=== PATIENT | male | born 1985 | race African-American/Black ===

== ENCOUNTER 2019-11-29 13:19 | Emergency (ER) | payer MEDICAID, OTHER ==
[~2019-11-29] VITALS: Ht 182.9 cm; Wt 113.4 kg
[2019-11-29] MEDS ORDERED: diphenhdrAMINE HCL 50 MG/1 ML VL ONE (13:27)
[2019-11-29] MEDS ORDERED: HALOPERIDOL LACTATE 5 MG/ML INJ VIAL IM ONE (14:00)
[2019-11-29] MEDS ORDERED: MIDAZOLAM HCL 1MG/1ML-2 ML VIAL IM ONE ×2 (14:00)
[2019-11-29] MEDS ORDERED: LORazepam 2MG/ML-1ML VIAL IM ONE (14:00)
[2019-11-29 14:32] LABS: Basophils # (auto) 0 10 ^3/uL (0-0.2); Basophils % (auto) 0.4 % (0.0-2.0); Eosinophils # (auto) 0 10 ^3/uL (0-0.8); Eosinophils % (auto) 0.1 % (0.0-7.0); Hematocrit 44.6 % (41.0-53.0); Hemoglobin 15.5 g/dL (13.5-17.5); Lymphocytes # (auto) 0.9 10 ^3/uL (0.4-5.4); Lymphocytes % (auto) 8.3 % (10.0-50.0); Mean Corpuscular Hemoglobin 31.2 pg (28.0-32.0); Mean Corpuscular Hgb Conc. 34.7 g/dL (32.0-36.0); Mean Corpuscular Volume 89.9 fL (80.0-100.0); Monocytes # (auto) 0.8 10 ^3/uL (0-1.3); Monocytes % (auto) 7.4 % (0.0-12.0); Neutrophils # (auto) 9.5 10 ^3/uL (1.6-8.6); Neutrophils % (auto) 83.8 % (37.0-80.0); Nucleated Red Blood Cells % 0.1 %; Platelet Count (auto) 112 10^3/uL (140-450); Red Blood Cells 4.96 10^6/uL (4.5-5.90); Red Cell Distribution Width 15.2 % (11.8-14.3); White Blood Cell 11.3 10^3/uL (4.4-10.8)
[2019-11-29 14:44] LABS: Albumin 4.6 g/dL (3.4-5.0); Calcium 9.6 mg/dL (8.5-10.1); Potassium 3.4 mmol/L (3.5-5.1)
[2019-11-29 14:47] LABS: BUN/Creatinine Ratio 6.4; Total Protein 8.6 g/dL (6.4-8.2)
[2019-11-29 14:49] LABS: Salicylate < 1.7 mg/dL (2.8-20.0)
[2019-11-29 15:03] LABS: Acetaminophen < 2.0 ug/mL (10-30)
[2019-11-29 16:41] LABS: Amphetamine Screen, Urine POSITIVE (NEGATIVE); Barbiturate Scree,Urine NEGATIVE (NEGATIVE); Benzodiazephine Screen, Urine POSITIVE (NEGATIVE); Cannabinoid Screen, Urine NEGATIVE (NEGATIVE); Cocaine Screen, Urine NEGATIVE (NEGATIVE); Opiate Scree,Urine NEGATIVE (NEGATIVE); Phencyclidine Screen, Urine NEGATIVE (NEGATIVE)
[2019-11-29 16:51] LABS: Urine Bacteria FEW /hpf (None Seen); Urine Blood 2+ /uL (Negative); Urine Hyaline Cast MOD /lpf (0 - 2); Urine Mucus FEW (None Seen); Urine Specific Gravity 1.018 (1.001-1.035); Urine WBC 4 /hpf (0 - 3)
[2019-11-29] MEDS ORDERED: SODIUM CHLORIDE 0.9% 1,000 ML IV ONE (17:15)
[2019-11-30 02:03] VITALS: BP 117/76
[2019-11-30] MEDS ORDERED: cefTRIAXone 1GM/50ML D5W 50 ML IV ONE ×2 (03:00→03:15)
== END 2019-11-30 03:40 | disposition home or self-care (01) ==
LOC: EDBD 13:19 → ER 13:19
DX: T50.905A Adverse effect of unspecified drugs, medicaments and biological substances, initial encounter (principal); F29 Unspecified psychosis not due to a substance or known physiological condition; N39.0 Urinary tract infection, site not specified; Y92.89 Other specified places as the place of occurrence of the external cause
CPT/HCPCS: 36415; 80053; 80307; 80320; 80329; 81001; 85025; 96361; 96365; 96372; 99285; J0696; J1200; J2250

== ENCOUNTER 2020-11-01 07:28 | Inpatient (IN) | payer MEDICAID ==
[~2020-11-01] VITALS: Ht 180.3 cm; Wt 86.5 kg
[2020-11-01] MEDS ORDERED: DEXTROSE (50%) 50ML SYRG IV PRN (08:00)
[2020-11-01] MEDS ORDERED: INSULIN LANTUS (GLARGINE) 1 /0.01ml (100units/ml) SC ONE (08:00)
[2020-11-01] MEDS ORDERED: SODIUM BICARBONATE 8.4 % INJ 50ML VIAL IV ONE (08:45)
[2020-11-01] MEDS ORDERED: SODIUM BICARBONATE 8.4% INJ 50ML SYRINGE ONE ×2 (08:58→09:00)
[2020-11-01] MEDS: SODIUM CHLORIDE 0.9% 1,000 ML IV SCH ×4 (09:02→20:53)
[2020-11-01] MEDS: InsuLIN R (HUMAN) 100 UNITS in SODIUM CHL 0.9% 99 ML IV SCH ×2 (09:03→19:55)
[2020-11-01] MEDS: ACCU-CHEK COMFORT CURVE STRIP VI SCH ×10 (09:05→22:43)
[2020-11-01 09:12] LABS: Basophils # (auto) 0 10 ^3/uL (0-0.2); Basophils % (auto) 0.4 % (0.0-2.0); Eosinophils # (auto) 0 10 ^3/uL (0-0.8); Eosinophils % (auto) 0.2 % (0.0-7.0); Hematocrit 50.1 % (41.0-53.0); Hemoglobin 16.8 g/dL (13.5-17.5); Lymphocytes # (auto) 0.6 10 ^3/uL (0.4-5.4); Lymphocytes % (auto) 4.4 % (10.0-50.0); Mean Corpuscular Hemoglobin 31.3 pg (28.0-32.0); Mean Corpuscular Hgb Conc. 33.6 g/dL (32.0-36.0); Mean Corpuscular Volume 93.1 fL (80.0-100.0); Monocytes # (auto) 1.5 10 ^3/uL (0-1.3); Monocytes % (auto) 11.5 % (0.0-12.0); Neutrophils # (auto) 10.9 10 ^3/uL (1.6-8.6); Neutrophils % (auto) 83.5 % (37.0-80.0); Nucleated Red Blood Cells % 0.5 %; Red Blood Cells 5.38 10^6/uL (4.5-5.90); Red Cell Distribution Width 14.1 % (11.8-14.3)
[2020-11-01 09:27] LABS: BUN/Creatinine Ratio 8.8; Calcium 9.5 mg/dL (8.5-10.1); Magnesium 2.8 mg/dL (1.6-2.6); Phosphorus 3.5 mg/dL (2.5-4.90); Potassium 4.9 mmol/L (3.5-5.1)
[2020-11-01] MEDS ORDERED: MORPHINE SULFATE INJECTION 2 MG/ML SYRG IV PRN (10:30)
[2020-11-01] MEDS ORDERED: NITROGLYCERIN 0.4 MG SL TAB SL PRN (10:30)
[2020-11-01] MEDS ORDERED: HYDROcodone-ACET 5/325MG TAB PO PRN (10:30)
[2020-11-01 10:59] LABS: Urine WBC None Seen /hpf (0 - 3)
[2020-11-01 11:10] LABS: Urine Bacteria NONE SEEN /hpf (None Seen); Urine Blood Negative /uL (Negative); Urine Hyaline Cast FEW /lpf (0 - 2); Urine Specific Gravity 1.015 (1.001-1.035)
[2020-11-01 11:19] LABS: Alcohol, Urine < 3.0 mg/dL (0-10); Amphetamine Screen, Urine NEGATIVE (NEGATIVE); Barbiturate Scree,Urine NEGATIVE (NEGATIVE); Benzodiazephine Screen, Urine NEGATIVE (NEGATIVE); Cannabinoid Screen, Urine NEGATIVE (NEGATIVE); Cocaine Screen, Urine NEGATIVE (NEGATIVE); Opiate Scree,Urine NEGATIVE (NEGATIVE); Phencyclidine Screen, Urine NEGATIVE (NEGATIVE)
[2020-11-01] MEDS ORDERED: SODIUM CHLORIDE 0.9% 1,000 ML IV SCH (12:00)
[2020-11-01] MEDS: METOCLOPRAMIDE HCL 5MG/ml INJ 2ml VIAL IV SCH ×2 (12:03→18:56)
[2020-11-01 15:00] LABS: Calcium 8.5 mg/dL (8.5-10.1)
[2020-11-01 20:43] LABS: BUN/Creatinine Ratio 8.3; Calcium 8.6 mg/dL (8.5-10.1); Potassium 4.4 mmol/L (3.5-5.1)
[2020-11-02 01:34] LABS: BUN/Creatinine Ratio 6.2; Calcium 8.6 mg/dL (8.5-10.1); Potassium 4.4 mmol/L (3.5-5.1)
[2020-11-02] MEDS: ACCU-CHEK COMFORT CURVE STRIP VI SCH ×10 (02:02→23:44)
[2020-11-02] MEDS: FAMOTIDINE (10MG/ML) 2ML VL IV SCH ×3 (02:03→21:30)
[2020-11-02] MEDS: SODIUM CHLORIDE 0.9% 1,000 ML IV SCH ×4 (03:33→23:20)
[2020-11-02 04:28] LABS: Basophils # (auto) 0 10 ^3/uL (0-0.2); Basophils % (auto) 0.3 % (0.0-2.0); Eosinophils # (auto) 0 10 ^3/uL (0-0.8); Eosinophils % (auto) 0.5 % (0.0-7.0); Hemoglobin 14.4 g/dL (13.5-17.5); Lymphocytes # (auto) 0.8 10 ^3/uL (0.4-5.4); Lymphocytes % (auto) 12.1 % (10.0-50.0); Mean Corpuscular Hemoglobin 31.5 pg (28.0-32.0); Mean Corpuscular Volume 90.1 fL (80.0-100.0); Monocytes # (auto) 0.9 10 ^3/uL (0-1.3); Monocytes % (auto) 13.8 % (0.0-12.0); Neutrophils # (auto) 4.8 10 ^3/uL (1.6-8.6); Neutrophils % (auto) 73.3 % (37.0-80.0); Nucleated Red Blood Cells % 0.1 %; Red Blood Cells 4.55 10^6/uL (4.5-5.90); White Blood Cell 6.5 10^3/uL (4.4-10.8)
[2020-11-02 04:44] LABS: Calcium 8.9 mg/dL (8.5-10.1); Magnesium 2.6 mg/dL (1.6-2.6); Phosphorus 1.3 mg/dL (2.5-4.90)
[2020-11-02] MEDS: InsuLIN R (HUMAN) 100 UNITS in SODIUM CHL 0.9% 99 ML IV SCH (08:29)
[2020-11-02] MEDS ORDERED: DEXTROSE (50%) 50ML SYRG IV PRN (09:30)
[2020-11-02] MEDS ORDERED: INSULIN LANTUS (GLARGINE) 1 /0.01ml (100units/ml) SC SCH (10:00)
[2020-11-02] MEDS: INSULIN LANTUS (GLARGINE) 1 /0.01ml (100units/ml) SC SCH ×2 (10:00→21:36)
[2020-11-02] MEDS: InsuLIN REG 1unit/0.01ml Soln (100units/ml) SC SCH ×3 (11:52→23:38)
[2020-11-02] MEDS ORDERED: METOCLOPRAMIDE HCL 5MG/ml INJ 2ml VIAL IV PRN (12:00)
[2020-11-02 15:04] VITALS: BP 135/90
[2020-11-02 16:46] VITALS: BP 120/89
[2020-11-02 22:00] VITALS: BP 141/105
[2020-11-03] MEDS: SODIUM CHLORIDE 0.9% 1,000 ML IV SCH ×3 (03:48→19:20)
[2020-11-03 05:00] VITALS: BP 131/77
[2020-11-03] MEDS: ACCU-CHEK COMFORT CURVE STRIP VI SCH ×3 (05:35→18:11)
[2020-11-03] MEDS: InsuLIN REG 1unit/0.01ml Soln (100units/ml) SC SCH ×3 (05:36→18:12)
[2020-11-03 06:08] LABS: BUN/Creatinine Ratio 5.6; Potassium 3.5 mmol/L (3.5-5.1)
[2020-11-03 09:00] VITALS: BP 130/70
[2020-11-03] MEDS: FAMOTIDINE (10MG/ML) 2ML VL IV SCH ×2 (09:39→21:54)
[2020-11-03] MEDS: INSULIN LANTUS (GLARGINE) 1 /0.01ml (100units/ml) SC SCH ×2 (09:41→21:55)
[2020-11-03] MEDS ORDERED: PANT40T PO (10:04)
[2020-11-03] MEDS ORDERED: INSLANTI SC (10:04)
[2020-11-03 12:59] VITALS: BP 121/64
[2020-11-03 15:23] VITALS: BP 121/64
[2020-11-03 17:05] VITALS: BP 118/68
[2020-11-03 22:00] VITALS: BP 120/66
[2020-11-04] MEDS: InsuLIN REG 1unit/0.01ml Soln (100units/ml) SC SCH ×5 (00:20→23:39)
[2020-11-04] MEDS: ACCU-CHEK COMFORT CURVE STRIP VI SCH ×5 (00:21→23:36)
[2020-11-04] MEDS: SODIUM CHLORIDE 0.9% 1,000 ML IV SCH (01:44)
[2020-11-04 05:00] VITALS: BP 117/65
[2020-11-04 08:54] VITALS: BP 115/60
[2020-11-04] MEDS: INSULIN LANTUS (GLARGINE) 1 /0.01ml (100units/ml) SC SCH ×2 (09:53→21:25)
[2020-11-04] MEDS: FAMOTIDINE (10MG/ML) 2ML VL IV SCH ×2 (09:54→21:16)
[2020-11-04] MEDS ORDERED: INSULIN LANTUS (GLARGINE) 1 /0.01ml (100units/ml) SC ONE (10:35)
[2020-11-04 12:41] VITALS: BP 113/60
[2020-11-04 17:07] VITALS: BP 118/72
[2020-11-04 22:00] VITALS: BP 110/65
[2020-11-05 05:00] VITALS: BP 123/67
[2020-11-05] MEDS: ACCU-CHEK COMFORT CURVE STRIP VI SCH ×2 (06:00→12:23)
[2020-11-05] MEDS: InsuLIN REG 1unit/0.01ml Soln (100units/ml) SC SCH ×2 (06:01→12:24)
[2020-11-05 09:00] VITALS: BP 119/69
[2020-11-05] MEDS: INSULIN LANTUS (GLARGINE) 1 /0.01ml (100units/ml) SC SCH (09:34)
[2020-11-05] MEDS: FAMOTIDINE (10MG/ML) 2ML VL IV SCH (09:35)
[2020-11-05 13:00] VITALS: BP 110/74
== END 2020-11-05 12:50 | disposition home or self-care (01) | DRG 420 ==
LOC: ER 07:28 → EDBD 07:28 → TELE 10:24 → CENTRAL 11-02 14:42
PROVIDERS: ADMIT Hospitalist; ATTEND Hospitalist
DX: E11.10 Type 2 diabetes mellitus with ketoacidosis without coma (principal); F17.210 Nicotine dependence, cigarettes, uncomplicated; Z20.822 Contact with and (suspected) exposure to COVID-19; Z79.4 Long term (current) use of insulin; Z83.3 Family history of diabetes mellitus; Z91.14 Patient's other noncompliance with medication regimen
CPT/HCPCS: 36415; 36600; 71045; 80048; 80307; 81001; 82010; 82728; 82805; 82962; 83735; 83930; 84100; 85025; 87426; 96361; 96374; 96375; 99291; G0378; J1815; J3490

== ENCOUNTER 2022-10-25 12:36 | Inpatient (IN) | payer MEDICAID ==
[~2022-10-25] VITALS: Ht 180.3 cm; Wt 94.7 kg
[2022-10-25] VITALS (14 sets, daily range): BP systolic 106–129; BP diastolic 56–70; PULSE 74–101; RESP 11–24; TEMP 98.5–98.7; O2SAT 94–97
[~2022-10-25 12:36] MED LIST: INSLANTI SC; PANT40T PO
[2022-10-25] MEDS ORDERED: SODIUM CHLORIDE 0.9% 2,000 ML IV ONE (13:00)
[2022-10-25] MEDS ORDERED: ONDANSETRON ODT 4 MG TAB PO ONE (13:00)
[2022-10-25] MEDS ORDERED: INSULIN LISPRO (HUMAN) 100 UNITS/ML ML SC ONE (13:00)
[2022-10-25] MEDS ORDERED: MECLIZINE HCL 25 MG TAB PO ONE (13:00)
[2022-10-25 13:20] LABS: Basophils # (auto) 0.1 10 ^3/uL (0-0.2); Basophils % (auto) 0.7 % (0.0-2.0); Eosinophils # (auto) 0 10 ^3/uL (0-0.8); Eosinophils % (auto) 0.3 % (0.0-7.0); Hemoglobin 13.4 g/dL (13.5-17.5); Lymphocytes # (auto) 0.8 10 ^3/uL (0.4-5.4); Lymphocytes % (auto) 10.8 % (10.0-50.0); Mean Corpuscular Hemoglobin 30.9 pg (28.0-32.0); Mean Corpuscular Hgb Conc. 32.7 g/dL (32.0-36.0); Mean Corpuscular Volume 94.6 fL (80.0-100.0); Monocytes # (auto) 0.6 10 ^3/uL (0-1.3); Neutrophils # (auto) 5.8 10 ^3/uL (1.6-8.6); Neutrophils % (auto) 80.2 % (37.0-80.0); Nucleated Red Blood Cells % 0.1 %; Red Blood Cells 4.33 10^6/uL (4.5-5.90); Red Cell Distribution Width 14.8 % (11.8-14.3); White Blood Cell 7.2 10^3/uL (4.4-10.8)
[2022-10-25 13:35] LABS: Albumin 4.1 g/dL (3.4-5.0); Calcium 9.2 mg/dL (8.5-10.1)
[2022-10-25 13:44] LABS: BUN/Creatinine Ratio 15.6 (10.0-20.0); Bilirubin, Total 2.4 mg/dL (0.2-1.0); Total Protein 7.7 g/dL (6.4-8.2)
[2022-10-25] MEDS ORDERED: DEXTROSE (50%) 50ML SYRG IV PRN (14:45)
[2022-10-25] MEDS ORDERED: SODIUM ZIRCONIUM CYCL 10 GM PAK PO ONE (14:45)
[2022-10-25] MEDS ORDERED: INSULIN LANTUS (GLARGINE) 1 /0.01ml (100units/ml) SC ONE (14:45)
[2022-10-25] MEDS ORDERED: ALBUTEROL SULF 2.5 MG/0.5ML(0.5%) NEB SOLN NEB ONE (14:45)
[2022-10-25] MEDS ORDERED: InsuLIN R (HUMAN) 100 UNITS in SODIUM CHL 0.9% 99 ML IV SCH ×4 (14:45→21:00)
[2022-10-25] MEDS ORDERED: DOCUSATE SOD 100 MG CAP PO PRN (15:00)
[2022-10-25] MEDS ORDERED: ONDANSETRON HCL 4 MG/2 ML VIAL IV PRN (15:00)
[2022-10-25] MEDS ORDERED: HYDROmorphone HCL 2 MG/ML VL/or syr IV PRN (15:00)
[2022-10-25] MEDS ORDERED: SODIUM CHLORIDE 0.9% 2,800 ML IV ONE (15:15)
[2022-10-25] MEDS: SODIUM CHLORIDE 0.9% 1,000 ML IV SCH ×2 (15:20→16:45)
[2022-10-25 15:51] LABS: Calcium 8.7 mg/dL (8.5-10.1); Magnesium 2.8 mg/dL (1.6-2.6); Potassium 5.2 mmol/L (3.5-5.1)
[2022-10-25] MEDS: HYDROcodone-ACET 5/325MG TAB PO PRN (17:18)
[2022-10-25] MEDS: ACCU-CHEK COMFORT CURVE STRIP VI SCH ×5 (18:12→23:57)
[2022-10-25] MEDS ORDERED: ALPR1TAB7 PO (19:10)
[2022-10-25] MEDS ORDERED: HYDR50TA69 PO (19:10)
[2022-10-25] MEDS ORDERED: METF-370 PO (19:10)
[2022-10-25] MEDS ORDERED: DIVA500T13 PO (19:10)
[2022-10-25] MEDS ORDERED: HYDR-4798 PO (19:10)
[2022-10-25] MEDS ORDERED: LOSA25TA15 PO (19:10)
[2022-10-25] MEDS: SODIUM CHLOR 0.9% PF (SALINE LOCK) 10ML VIAL/SYR IV SCH (20:58)
[2022-10-25 21:18] LABS: BUN/Creatinine Ratio 15.8 (10.0-20.0); Calcium 9.2 mg/dL (8.5-10.1); Potassium 4.3 mmol/L (3.5-5.1)
[2022-10-26] VITALS (22 sets, daily range): BP systolic 106–143; BP diastolic 69–81; PULSE 70–92; RESP 11–28; TEMP 98.1–98.7; O2SAT 94–99
[2022-10-26] MEDS: ACCU-CHEK COMFORT CURVE STRIP VI SCH ×15 (01:28→22:38)
[2022-10-26 04:09] LABS: BUN/Creatinine Ratio 16.8 (10.0-20.0); Calcium 9.1 mg/dL (8.5-10.1); Potassium 3.4 mmol/L (3.5-5.1)
[2022-10-26] MEDS: SODIUM CHLOR 0.9% PF (SALINE LOCK) 10ML VIAL/SYR IV SCH ×3 (06:08→21:00)
[2022-10-26 07:28] LABS: Calcium 9.3 mg/dL (8.5-10.1); Potassium 3.6 mmol/L (3.5-5.1)
[2022-10-26 07:56] LABS: BUN/Creatinine Ratio 16.2 (10.0-20.0)
[2022-10-26] MEDS ORDERED: INSULIN LANTUS (GLARGINE) 1 /0.01ml (100units/ml) SC ONE (10:00)
[2022-10-26] MEDS: PANTOPRAZOLE 40 MG TAB PO SCH (10:00)
[2022-10-26] MEDS ORDERED: PANTOPRAZOLE 40 MG/10 ML VIAL INJ IV SCH (10:00)
[2022-10-26] MEDS: LOSARTAN POTASSIUM 25 MG TAB PO SCH (10:39)
[2022-10-26] MEDS ORDERED: POTASSIUM CHL 20 Meq TABLET PO ONE (13:00)
[2022-10-26] MEDS: hydrOXYzine HCL 10 MG TAB PO SCH ×2 (14:00→22:00)
[2022-10-26] MEDS: INSULIN LANTUS (GLARGINE) 1 /0.01ml (100units/ml) SC SCH (18:12)
[2022-10-27] VITALS (16 sets, daily range): BP systolic 104–134; BP diastolic 58–82; PULSE 66–96; RESP 13–27; TEMP 98.3–98.8; O2SAT 95–100
[2022-10-27] MEDS: ACCU-CHEK COMFORT CURVE STRIP VI SCH ×8 (00:04→23:39)
[2022-10-27] MEDS ORDERED: InsuLIN R (HUMAN) 100 UNITS in SODIUM CHL 0.9% 99 ML IV SCH (03:30)
[2022-10-27 04:22] LABS: Potassium 3.8 mmol/L (3.5-5.1)
[2022-10-27 04:29] LABS: BUN/Creatinine Ratio 8.8 (10.0-20.0); Calcium 9.2 mg/dL (8.5-10.1); Phosphorus 2.7 mg/dL (2.5-4.90)
[2022-10-27 04:42] LABS: Basophils # (auto) 0 10 ^3/uL (0-0.2); Basophils % (auto) 0.8 % (0.0-2.0); Eosinophils # (auto) 0 10 ^3/uL (0-0.8); Hematocrit 36.5 % (41.0-53.0); Hemoglobin 12.2 g/dL (13.5-17.5); Lymphocytes # (auto) 1.1 10 ^3/uL (0.4-5.4); Lymphocytes % (auto) 26.1 % (10.0-50.0); Mean Corpuscular Hemoglobin 30.9 pg (28.0-32.0); Mean Corpuscular Hgb Conc. 33.5 g/dL (32.0-36.0); Mean Corpuscular Volume 92.2 fL (80.0-100.0); Monocytes # (auto) 0.3 10 ^3/uL (0-1.3); Monocytes % (auto) 7.6 % (0.0-12.0); Neutrophils # (auto) 2.7 10 ^3/uL (1.6-8.6); Neutrophils % (auto) 64.5 % (37.0-80.0); Nucleated Red Blood Cells % 0.1 %; Red Blood Cells 3.95 10^6/uL (4.5-5.90); Red Cell Distribution Width 14.7 % (11.8-14.3); White Blood Cell 4.1 10^3/uL (4.4-10.8)
[2022-10-27] MEDS: hydrOXYzine HCL 10 MG TAB PO SCH ×3 (06:00→21:18)
[2022-10-27] MEDS: SODIUM CHLOR 0.9% PF (SALINE LOCK) 10ML VIAL/SYR IV SCH ×3 (06:07→23:39)
[2022-10-27] MEDS: INSULIN LANTUS (GLARGINE) 1 /0.01ml (100units/ml) SC SCH ×2 (07:42→17:46)
[2022-10-27] MEDS: HYDROcodone-ACET 5/325MG TAB PO PRN ×2 (07:45→20:16)
[2022-10-27] MEDS ORDERED: DEXTROSE (50%) 50ML SYRG IV PRN ×2 (10:00→16:15)
[2022-10-27] MEDS: PANTOPRAZOLE 40 MG TAB PO SCH (10:15)
[2022-10-27] MEDS: LOSARTAN POTASSIUM 25 MG TAB PO SCH (10:18)
[2022-10-27] MEDS ORDERED: ACCU-CHEK COMFORT CURVE STRIP VI SCH (12:00)
[2022-10-27] MEDS ORDERED: InsuLIN REG 1unit/0.01ml Soln (100units/ml) SC SCH (12:00)
[2022-10-27] MEDS ORDERED: HYDROmorphone HCL 2 MG/ML VL/or syr IV PRN (16:15)
[2022-10-27] MEDS: INSULIN LISPRO (HUMAN) 100 UNITS/ML ML SC SCH (16:31)
[2022-10-27] MEDS: InsuLIN REG 1unit/0.01ml Soln (100units/ml) SC SCH ×2 (17:46→23:40)
[2022-10-28] VITALS (9 sets, daily range): BP systolic 105–123; BP diastolic 55–69; PULSE 64–80; RESP 12–20; TEMP 98.4–98.7; O2SAT 94–98
[2022-10-28] MEDS: SODIUM CHLOR 0.9% PF (SALINE LOCK) 10ML VIAL/SYR IV SCH ×2 (05:35→14:00)
[2022-10-28] MEDS: hydrOXYzine HCL 10 MG TAB PO SCH ×2 (05:35→14:00)
[2022-10-28] MEDS: ACCU-CHEK COMFORT CURVE STRIP VI SCH ×2 (05:35→11:40)
[2022-10-28] MEDS: InsuLIN REG 1unit/0.01ml Soln (100units/ml) SC SCH ×2 (05:36→11:39)
[2022-10-28] MEDS: INSULIN LISPRO (HUMAN) 100 UNITS/ML ML SC SCH ×2 (06:13→11:40)
[2022-10-28] MEDS: INSULIN LANTUS (GLARGINE) 1 /0.01ml (100units/ml) SC SCH (08:15)
[2022-10-28] MEDS: HYDROcodone-ACET 5/325MG TAB PO PRN (08:17)
[2022-10-28] MEDS: PANTOPRAZOLE 40 MG TAB PO SCH (09:55)
[2022-10-28] MEDS: LOSARTAN POTASSIUM 25 MG TAB PO SCH (09:56)
[2022-10-28] MEDS ORDERED: LANC-347 XX (12:33)
[2022-10-28] MEDS ORDERED: BLOO1KIT60 XX (12:33)
[2022-10-28] MEDS ORDERED: INSLANTI SC (12:33)
[2022-10-28] MEDS ORDERED: INSLISPI SC (12:33)
== END 2022-10-28 14:33 | disposition home or self-care (01) | DRG 420 ==
LOC: ER 12:36 → OVERFLOW 14:59 → ICU WEST 16:40
PROVIDERS: ADMIT Internal Medicine; ATTEND Hospitalist
DX: E11.10 Type 2 diabetes mellitus with ketoacidosis without coma (principal); G93.41 Metabolic encephalopathy; N17.9 Acute kidney failure, unspecified; R41.82 Altered mental status, unspecified; E87.5 Hyperkalemia; F20.9 Schizophrenia, unspecified; F31.9 Bipolar disorder, unspecified; F17.210 Nicotine dependence, cigarettes, uncomplicated; E11.65 Type 2 diabetes mellitus with hyperglycemia; Z79.4 Long term (current) use of insulin
CPT/HCPCS: 36415; 36600; 71045; 76700; 80048; 80053; 80061; 82010; 82805; 82962; 83036; 83690; 83735; 83880; 83930; 84100; 84484; 85025; 87081; 93005; 94640; 96372; 99291; C9113; G0378; J1815; Q0162

== ENCOUNTER 2022-12-01 09:51 | Inpatient (IN) | payer MEDICAID ==
[~2022-12-01] VITALS: Ht 177.8 cm; Wt 82.0 kg
[~2022-12-01 09:51] MED LIST changes: +ALPR1TAB7 PO; +BLOO1KIT60 XX; +DIVA500T13 PO; +HYDR-4798 PO; +HYDR50TA69 PO; +INSLISPI SC; +LANC-347 XX; +LOSA25TA15 PO
[2022-12-01 10:50] VITALS: PULSE 103; RESP 17; O2SAT 100
[2022-12-01 10:50] LABS: Basophils # (auto) 0.1 10 ^3/uL (0-0.2); Eosinophils # (auto) 0 10 ^3/uL (0-0.8); Eosinophils % (auto) 0.2 % (0.0-7.0); Hematocrit 50.4 % (41.0-53.0); Hemoglobin 17.1 g/dL (13.5-17.5); Lymphocytes # (auto) 1.3 10 ^3/uL (0.4-5.4); Lymphocytes % (auto) 12.3 % (10.0-50.0); Mean Corpuscular Hemoglobin 31.8 pg (28.0-32.0); Mean Corpuscular Hgb Conc. 33.9 g/dL (32.0-36.0); Mean Corpuscular Volume 93.8 fL (80.0-100.0); Monocytes # (auto) 0.8 10 ^3/uL (0-1.3); Monocytes % (auto) 7.5 % (0.0-12.0); Neutrophils # (auto) 8.5 10 ^3/uL (1.6-8.6); Nucleated Red Blood Cells % 0.6 %; Red Blood Cells 5.38 10^6/uL (4.5-5.90); Red Cell Distribution Width 14.9 % (11.8-14.3); White Blood Cell 10.8 10^3/uL (4.4-10.8)
[2022-12-01] MEDS ORDERED: INSULIN LANTUS (GLARGINE) 1 /0.01ml (100units/ml) SC ONE ×2 (11:00→11:45)
[2022-12-01] MEDS ORDERED: InsuLIN R (HUMAN) 100 UNITS in SODIUM CHL 0.9% 99 ML IV SCH (11:00)
[2022-12-01] MEDS ORDERED: DEXTROSE (50%) 50ML SYRG IV PRN ×2 (11:00→11:45)
[2022-12-01] MEDS: SODIUM CHLORIDE 0.9% 1,000 ML IV SCH ×6 (11:05→23:40)
[2022-12-01 11:10] LABS: Alanine Aminotransferase 62 U/L (7-40); Albumin 5.2 g/dL (3.2-4.8); Alkaline Phosphatase 158 U/L (46-116); Anion Gap 20.00001 (5-15); Aspartate Aminotransferase 65 U/L (13-40); BUN/Creatinine Ratio 9.6 (10.0-20.0); Blood Urea Nitrogen 17 mg/dL (9-23); Calcium 10.7 mg/dL (8.7-10.4); Chloride 97 mmol/L (98-107); Sodium 127 mmol/L (136-145)
[2022-12-01 11:11] LABS: Bilirubin, Total 1.1 mg/dL (0.2-1.0); Total Protein 8.9 g/dL (5.7-8.2)
[2022-12-01 11:15] LABS: Urine Bacteria NONE SEEN /hpf (None Seen); Urine Blood Negative /uL (Negative); Urine Clarity Clear (Clear); Urine Color Colorless (Yellow); Urine Protein, UAD TRACE (Negative); Urine Specific Gravity 1.017 (1.001-1.035); Urine Urobilinogen Normal (Negative); Urine WBC <1 /hpf (0 - 3)
[2022-12-01 11:15] LABS: Carbon Dioxide < 10 mmol/L (20-30); Potassium 5.9 mmol/L (3.5-5.1)
[2022-12-01 11:16] LABS: Glucose 448 mg/dL (74-106)
[2022-12-01 11:21] LABS: Magnesium 2.2 mg/dL (1.6-2.6)
[2022-12-01 11:23] LABS: Phosphorus 5.2 mg/dL (2.4-5.1)
[2022-12-01] MEDS ORDERED: FUROSEMIDE 20 MG/2 ML VIAL IV ONE (11:45)
[2022-12-01] MEDS ORDERED: SODIUM CHLORIDE 0.9% 1,000 ML IV ONE ×3 (11:45)
[2022-12-01] MEDS ORDERED: CALCIUM GLUC 1,000mg/50ml-NS 50 ML IV ONE (11:45)
[2022-12-01] MEDS ORDERED: SODIUM BICARBONATE 8.4% INJ 50ML SYRINGE IV ONE (11:45)
[2022-12-01] MEDS ORDERED: ACCU-CHEK COMFORT CURVE STRIP VI SCH (12:00)
[2022-12-01] MEDS: InsuLIN R (HUMAN) 100 UNITS in SODIUM CHL 0.9% 99 ML IV SCH (12:03)
[2022-12-01] MEDS: ACCU-CHEK COMFORT CURVE STRIP VI SCH ×8 (12:15→22:25)
[2022-12-01] MEDS ORDERED: ACETAMINOPHEN 325 MG TAB PO PRN (14:15)
[2022-12-01] MEDS ORDERED: MORPHINE SULFATE INJ 2 MG/ml SYRG IV PRN (14:15)
[2022-12-01] MEDS ORDERED: HYDROcodone-ACET 5/325MG TAB PO PRN (14:15)
[2022-12-01] MEDS ORDERED: NITROGLYCERIN 0.4 MG SL TAB SL PRN (14:15)
[2022-12-01] MEDS ORDERED: SODIUM CHLORIDE 0.9% 1,000 ML IV SCH (15:00)
[2022-12-01 18:46] LABS: Chloride 105 mmol/L (98-107)
[2022-12-01 18:47] LABS: Anion Gap 19.00001 (5-15)
[2022-12-01 18:48] LABS: Calcium 9.7 mg/dL (8.7-10.4)
[2022-12-01 18:53] LABS: BUN/Creatinine Ratio 8.6 (10.0-20.0); Blood Urea Nitrogen 13 mg/dL (9-23)
[2022-12-01 18:55] LABS: Phosphorus 3.5 mg/dL (2.4-5.1)
[2022-12-01 18:56] LABS: Glucose 268 mg/dL (74-106); Sodium 134 mmol/L (136-145)
[2022-12-01 19:01] LABS: Carbon Dioxide < 10 mmol/L (20-30)
[2022-12-01 19:25] VITALS: PULSE 99; RESP 17; O2SAT 99
[2022-12-01] MEDS: ONDANSETRON HCL 4 MG/2 ML VIAL IV PRN (19:33)
[2022-12-01] MEDS: MORPHINE SULFATE INJ 2 MG/ml SYRG IV PRN (19:33)
[2022-12-01 23:17] LABS: Chloride 108 mmol/L (98-107); Potassium 4.8 mmol/L (3.5-5.1); Sodium 134 mmol/L (136-145)
[2022-12-01 23:18] LABS: Anion Gap 14 (5-15); Carbon Dioxide 12 mmol/L (20-30)
[2022-12-01 23:19] LABS: Calcium 9.6 mg/dL (8.7-10.4)
[2022-12-01 23:24] LABS: BUN/Creatinine Ratio 5.7 (10.0-20.0); Blood Urea Nitrogen 8 mg/dL (9-23); Glucose 204 mg/dL (74-106)
[2022-12-02] MEDS: ACCU-CHEK COMFORT CURVE STRIP VI SCH ×16 (00:13→22:32)
[2022-12-02 00:58] LABS: Chloride 109 mmol/L (98-107); Potassium 4.7 mmol/L (3.5-5.1); Sodium 134 mmol/L (136-145)
[2022-12-02 00:59] LABS: Anion Gap 13 (5-15); Carbon Dioxide 12 mmol/L (20-30)
[2022-12-02 01:00] LABS: Calcium 9.3 mg/dL (8.7-10.4)
[2022-12-02 01:04] LABS: BUN/Creatinine Ratio 6.5 (10.0-20.0); Blood Urea Nitrogen 8 mg/dL (9-23); Glucose 188 mg/dL (74-106)
[2022-12-02 01:07] LABS: Phosphorus 2.5 mg/dL (2.4-5.1)
[2022-12-02] MEDS: SODIUM CHLORIDE 0.9% 1,000 ML IV SCH ×4 (04:41→21:08)
[2022-12-02 06:18] LABS: Anion Gap 12 (5-15); Carbon Dioxide 15 mmol/L (20-30); Chloride 110 mmol/L (98-107); Potassium 4.1 mmol/L (3.5-5.1); Sodium 137 mmol/L (136-145)
[2022-12-02 06:20] LABS: Calcium 9.5 mg/dL (8.7-10.4)
[2022-12-02 06:24] LABS: BUN/Creatinine Ratio 4.8 (10.0-20.0); Blood Urea Nitrogen 6 mg/dL (9-23); Glucose 158 mg/dL (74-106)
[2022-12-02 06:26] LABS: Phosphorus 2.4 mg/dL (2.4-5.1)
[2022-12-02] MEDS: InsuLIN R (HUMAN) 100 UNITS in SODIUM CHL 0.9% 99 ML IV SCH (07:28)
[2022-12-02 07:30] VITALS: PULSE 87; RESP 18; O2SAT 97
[2022-12-02] MEDS: ONDANSETRON HCL 4 MG/2 ML VIAL IV PRN ×2 (08:33→19:55)
[2022-12-02] MEDS: MORPHINE SULFATE INJ 2 MG/ml SYRG IV PRN ×2 (08:39→19:49)
[2022-12-02] MEDS ORDERED: INSULIN LANTUS (GLARGINE) 1 /0.01ml (100units/ml) SC SCH (10:00)
[2022-12-02] MEDS ORDERED: D5W/SOD CHLO 0.9% 1,000 ML IV SCH (10:00)
[2022-12-02] MEDS: INSULIN LANTUS (GLARGINE) 1 /0.01ml (100units/ml) SC SCH (10:27)
[2022-12-02] MEDS: ENOXAPARIN SOD 40 MG/0.4 ML SYRINGE SC SCH (10:30)
[2022-12-02] MEDS ORDERED: InsuLIN R (HUMAN) 100 UNITS in SODIUM CHL 0.9% 99 ML IV SCH (12:15)
[2022-12-02 12:33] LABS: Chloride 110 mmol/L (98-107); Potassium 4.3 mmol/L (3.5-5.1); Sodium 135 mmol/L (136-145)
[2022-12-02 12:34] LABS: Anion Gap 10 (5-15); Calcium 9.1 mg/dL (8.7-10.4); Carbon Dioxide 15 mmol/L (20-30)
[2022-12-02 12:39] LABS: Glucose 241 mg/dL (74-106)
[2022-12-02 12:42] LABS: BUN/Creatinine Ratio 4.3 (10.0-20.0); Blood Urea Nitrogen < 5 mg/dL (9-23); Phosphorus 2.5 mg/dL (2.4-5.1)
[2022-12-02 19:03] LABS: Chloride 111 mmol/L (98-107); Sodium 137 mmol/L (136-145)
[2022-12-02 19:04] LABS: Anion Gap 8 (5-15); Calcium 8.5 mg/dL (8.7-10.4); Carbon Dioxide 18 mmol/L (20-30)
[2022-12-02 19:09] LABS: Glucose 175 mg/dL (74-106)
[2022-12-02 19:10] LABS: Magnesium 1.6 mg/dL (1.6-2.6)
[2022-12-02 19:11] LABS: Phosphorus 2.2 mg/dL (2.4-5.1)
[2022-12-02 19:13] LABS: BUN/Creatinine Ratio 5.2 (10.0-20.0); Blood Urea Nitrogen 6 mg/dL (9-23)
[2022-12-02 19:20] VITALS: PULSE 82; RESP 16; O2SAT 99
[2022-12-03 01:00] LABS: Magnesium 1.4 mg/dL (1.6-2.6)
[2022-12-03 01:02] LABS: Phosphorus 2.4 mg/dL (2.4-5.1)
[2022-12-03] MEDS: ACCU-CHEK COMFORT CURVE STRIP VI SCH ×5 (01:33→06:00)
[2022-12-03 03:35] LABS: Anion Gap 8 (5-15); Carbon Dioxide 18 mmol/L (20-30); Chloride 110 mmol/L (98-107); Potassium 3.7 mmol/L (3.5-5.1); Sodium 136 mmol/L (136-145)
[2022-12-03 03:36] LABS: Calcium 8.9 mg/dL (8.7-10.4)
[2022-12-03 03:41] LABS: Glucose 195 mg/dL (74-106)
[2022-12-03] MEDS: SODIUM CHLORIDE 0.9% 1,000 ML IV SCH (03:42)
[2022-12-03 03:44] LABS: BUN/Creatinine Ratio 5.1 (10.0-20.0); Blood Urea Nitrogen < 5 mg/dL (9-23)
[2022-12-03] MEDS: ONDANSETRON HCL 4 MG/2 ML VIAL IV PRN (04:40)
[2022-12-03] MEDS: MORPHINE SULFATE INJ 2 MG/ml SYRG IV PRN (04:41)
[2022-12-03] MEDS: INSULIN LANTUS (GLARGINE) 1 /0.01ml (100units/ml) SC SCH (06:09)
[2022-12-03] MEDS ORDERED: INSULIN LANTUS (GLARGINE) 1 /0.01ml (100units/ml) SC ONE (06:15)
[2022-12-03 06:33] LABS: Magnesium 1.4 mg/dL (1.6-2.6)
[2022-12-03 06:35] LABS: Phosphorus 2.6 mg/dL (2.4-5.1)
[2022-12-03 07:11] VITALS: PULSE 75; RESP 16; O2SAT 100
[2022-12-03] MEDS: ENOXAPARIN SOD 40 MG/0.4 ML SYRINGE SC SCH (07:53)
[2022-12-03] MEDS: MAGNESIUM SULFATE 1GM/100ML 100 ML IV SCH ×3 (09:16→12:18)
[2022-12-03] MEDS ORDERED: ACCU-CHEK COMFORT CURVE STRIP VI SCH ×2 (10:00→12:00)
[2022-12-03] MEDS ORDERED: InsuLIN REG 1unit/0.01ml Soln (100units/ml) SC SCH ×2 (10:00→12:00)
[2022-12-03 11:01] VITALS: BP 129/81; PULSE 87; RESP 18; TEMP 98.2; O2SAT 100
[2022-12-03] MEDS ORDERED: MAGNESIUM OXIDE 400 MG TAB PO ONE (11:15)
[2022-12-03] MEDS ORDERED: DEXTROSE (50%) 50ML SYRG IV PRN (12:00)
[2022-12-03 12:03] LABS: Chloride 107 mmol/L (98-107); Potassium 3.6 mmol/L (3.5-5.1); Sodium 133 mmol/L (136-145)
[2022-12-03 12:04] LABS: Anion Gap 7 (5-15); Carbon Dioxide 19 mmol/L (20-30)
[2022-12-03 12:05] LABS: Calcium 8.7 mg/dL (8.7-10.4)
[2022-12-03 12:10] LABS: BUN/Creatinine Ratio 5.3 (10.0-20.0); Blood Urea Nitrogen < 5 mg/dL (9-23); Glucose 331 mg/dL (74-106)
[2022-12-03] MEDS ORDERED: PANT40T PO (13:13)
[2022-12-03 14:57] VITALS: BP 129/81; PULSE 89; RESP 17; TEMP 98.2; O2SAT 100
== END 2022-12-03 16:18 | disposition home or self-care (01) | DRG 420 ==
LOC: EDBD 09:51 → ER 09:51 → OVERFLOW 14:17 → TELE-CENTR 12-03 10:48
PROVIDERS: ADMIT Internal Medicine; ATTEND Internal Medicine
DX: E10.11 Type 1 diabetes mellitus with ketoacidosis with coma (principal); N17.0 Acute kidney failure with tubular necrosis; E83.52 Hypercalcemia; E87.5 Hyperkalemia; F12.90 Cannabis use, unspecified, uncomplicated; F17.210 Nicotine dependence, cigarettes, uncomplicated; F20.9 Schizophrenia, unspecified; F31.9 Bipolar disorder, unspecified; F41.9 Anxiety disorder, unspecified; I10 Essential (primary) hypertension; K21.9 Gastro-esophageal reflux disease without esophagitis; R00.0 Tachycardia, unspecified; R74.01 Elevation of levels of liver transaminase levels; Z91.148 Patient's other noncompliance with medication regimen for other reason
CPT/HCPCS: 36415; 36600; 80048; 80053; 81001; 82010; 82805; 82962; 83036; 83735; 83930; 84100; 85025; 96361; 96372; 96374; 96375; 99291; G0378; J1815; J2405